=== PATIENT | male | born 1990 | race African-American/Black ===

== ENCOUNTER → 2020-03-23 | Outpatient (CLI) | payer OTHER | LOC: MHCPAIN 12:51 | DX: M54.2 Cervicalgia (principal); G89.29 Other chronic pain; M79.18 Myalgia, other site | CPT/HCPCS: G0463 ==

== ENCOUNTER → 2020-04-07 | Outpatient (CLI) | payer OTHER | LOC: MHCPAIN 14:35 | DX: M54.2 Cervicalgia (principal); M79.18 Myalgia, other site | CPT/HCPCS: J1040 ==